=== PATIENT | male | born 1965 | race Caucasian/White ===

== ENCOUNTER 2023-08-02 07:56 | Outpatient (CLI) | payer OTHER, SELFPAY | END 2023-08-02 07:57 | disposition home or self-care (01) | PROVIDERS: PCP Physician Assistant Medical; Visit Provider Physician Assistant Medical | DX: M79.641 Pain in right hand (principal); M79.642 Pain in left hand | CPT/HCPCS: 86200; 86431 ==

== ENCOUNTER 2023-09-26 10:15 | Outpatient (CLI) | payer OTHER, SELFPAY | END 2023-09-26 10:16 | disposition home or self-care (01) | LOC: FRMREF 10:19 | PROVIDERS: PCP Physician Assistant Medical; Visit Provider Physician Assistant Medical | DX: R53.83 Other fatigue (principal); R19.7 Diarrhea, unspecified | CPT/HCPCS: 80053; 84270; 84402; 84403 ==

== ENCOUNTER 2023-09-27 09:28 | Outpatient (CLI) | payer OTHER, SELFPAY | END 2023-09-27 09:29 | disposition home or self-care (01) | LOC: NFLDREF 10-03 12:18 | PROVIDERS: PCP Physician Assistant Medical; Referring Provider Physician Assistant Medical; Visit Provider Physician Assistant Medical | DX: R19.7 Diarrhea, unspecified (principal) | CPT/HCPCS: 87045; 87046; 87338; 87427; 87505; 87798 ==

== ENCOUNTER 2024-01-21 08:10 | Outpatient (CLI) | payer OTHER, SELFPAY | END 2024-01-21 08:11 | disposition home or self-care (01) | LOC: NFLDREF 01-23 06:38 | PROVIDERS: PCP Physician Assistant Medical; Referring Provider Physician Assistant Medical; Visit Provider Physician Assistant Medical | DX: R79.89 Other specified abnormal findings of blood chemistry (principal) | CPT/HCPCS: 84403 ==

== ENCOUNTER 2025-06-15 14:43 | Outpatient (CLI) | payer OTHER, SELFPAY | END 2025-06-15 14:44 | disposition home or self-care (01) | LOC: NFLDREF 06-19 13:34 | PROVIDERS: PCP Physician Assistant Medical; Referring Provider Physician Assistant Medical; Visit Provider Physician Assistant Medical | DX: R79.89 Other specified abnormal findings of blood chemistry (principal); R53.83 Other fatigue; G62.9 Polyneuropathy, unspecified | CPT/HCPCS: 80053; 82306; 82607; 82728; 84403; 84443 ==